=== PATIENT | female | born 1955 | race Caucasian/White ===

== ENCOUNTER → 2023-11-04 09:05 | Outpatient (REF) | payer MEDICARE, OTHER, SELFPAY | LOC: HWWDC 09:05 | PROVIDERS: ATTENDING PHYSICIAN Obstetrics & Gynecology Gynecology; FAMILY PHYSICIAN Internal Medicine | DX: Z12.31 Encounter for screening mammogram for malignant neoplasm of breast (principal) | CPT/HCPCS: 77063; 77067 ==

== ENCOUNTER → 2024-06-04 06:15 | Day surgery (SDC) | payer MEDICARE, OTHER, SELFPAY | LOC: GI 06:15 | PROVIDERS: ATTENDING PHYSICIAN Internal Medicine; FAMILY PHYSICIAN Internal Medicine | DX: Z12.11 Encounter for screening for malignant neoplasm of colon (principal); Z86.0100 Personal history of colon polyps, unspecified; K57.30 Diverticulosis of large intestine without perforation or abscess without bleeding; K64.8 Other hemorrhoids; D12.0 Benign neoplasm of cecum | CPT/HCPCS: 45380; 88305 ==

== ENCOUNTER 2024-12-02 06:07 | Day surgery (SDC) | payer MEDICARE, OTHER, SELFPAY ==
[2024-12-02 09:12] VITALS: BP 143/79
[2024-12-02 09:16] VITALS: BMI 23.7
[2024-12-02 09:30] VITALS: BMI 23.7
[2024-12-02 12:06] VITALS: BP 114/59
[2024-12-02 12:15] VITALS: BP 106/70
[2024-12-02 12:30] VITALS: BP 112/78
[2024-12-02 12:37] VITALS: BP 115/59
== END 2024-12-02 12:55 | disposition home or self-care (01) ==
LOC: GI 06:07
PROVIDERS: ATTENDING PHYSICIAN Internal Medicine Gastroenterology
DX: K63.89 Other specified diseases of intestine (principal); K64.0 First degree hemorrhoids
CPT/HCPCS: 45385; 88305

== ENCOUNTER → 2024-12-22 08:19 | Outpatient (REF) | payer MEDICARE, OTHER, SELFPAY | LOC: HWWDC 08:19 | PROVIDERS: ATTENDING PHYSICIAN Obstetrics & Gynecology Gynecology; FAMILY PHYSICIAN Nurse Practitioner Family | DX: Z12.31 Encounter for screening mammogram for malignant neoplasm of breast (principal) | CPT/HCPCS: 77063; 77067 ==